=== PATIENT | female | born 2000 | race American Indian/Alaskan Native ===

== ENCOUNTER 2021-02-14 08:14 | Emergency (ER) | payer SELFPAY ==
[2021-02-14 08:35] VITALS: BP 114/77
[2021-02-14] MEDS ORDERED: KETOROLAC 30 MG/1 ML INJ IM ONE (08:44)
--- NOTE | 2021-02-14 08:45 | Emergency Department Report ---
ED General Adult HPI - General Chief complaint: Chest Pain Stated complaint: CHEST PAIN PUI?: No Time Seen by Provider: 02/14/21 08:43 Source: patient Mode of arrival: Ambulatory Limitations: No Limitations - History of Present Illness Initial comments: 20 yo comes to ER with cp. She states this is her usual chest pain. Sharp and dull. Moves from area to area over her anterior chest. She is from [place] and her MD there had sent her to a specialist- but then she moved. She can not tell me what kind of specialist. She is on home naproyn. Warm baths and cold packs relieves pain. Movement makes pain worse. no fall or trauma. no other medical history no fever no chills no sob pt is NOT obese she is on no meds other than naprosyn -: Gradual, month(s) Consistency: intermittent Improves with: other Worsens with: movement Associated Symptoms: denies other symptoms - Related Data Previous Rx's Medication Instructions Recorded Last Taken Type methylPREDNISolone [Medrol 4MG 4 mg PO FS #1 tab.ds.pk 02/14/21 Unknown Rx DOSEPAK (21 tabs)] Allergies Allergy/AdvReac Type Severity Reaction Status Date / Time No Known Allergies Allergy Verified 02/14/21 08:35 ED Review of Systems ROS: Stated complaint: CHEST PAIN Other details as noted in HPI Comment: All other systems reviewed and negative ED Past Medical Hx - Past Medical History Previous Medical History?: Yes Additional medical history: costrocondritis - Surgical History Past Surgical History?: No - Family History Family history: no significant - Social History Smoking Status: Never Smoker Substance Use Type: None - Medications Home Medications: Home Medications Medication Instructions Recorded Confirmed Last Taken Type methylPREDNISolone [Medrol 4MG 4 mg PO FS #1 tab.ds.pk 02/14/21 Unknown Rx DOSEPAK (21 tabs)] ED Physical Exam - General Limitations: No Limitations General appearance: alert, in no apparent distress - Head Head exam: Present: atraumatic, normocephalic - Eye Eye exam: Present: normal appearance - ENT ENT exam: Present: mucous membranes moist - Neck Neck exam: Present: normal inspection - Respiratory Respiratory exam: Present: normal lung sounds bilaterally. Absent: respiratory distress - Cardiovascular Cardiovascular Exam: Present: regular rate, normal rhythm. Absent: systolic murmur, diastolic murmur, rubs, gallop - GI/Abdominal GI/Abdominal exam: Present: soft, normal bowel sounds - Extremities Exam Extremities exam: Present: normal inspection - Back Exam Back exam: Present: normal inspection - Neurological Exam Neurological exam: Present: alert, oriented X3 - Psychiatric Psychiatric exam: Present: normal affect, normal mood - Skin Skin exam: Present: warm, dry, intact, normal color. Absent: rash ED Course Vital Signs 02/14/21 02/14/21 08:34 08:55 Temperature 98.2 F Pulse Rate 101 H Respiratory 16 16 Rate Blood Pressure 114/77 [Right] O2 Sat by Pulse 98 Oximetry ED Medical Decision Making - Medical Decision Making Vital Signs (72 hours) 02/14/21 02/14/21 08:34 08:55 Temperature 98.2 F Pulse Rate 101 H Respiratory 16 16 Rate Blood Pressure 114/77 [Right] O2 Sat by Pulse 98 Oximetry given toradol IM already on naprosyn; will dc with rx for dose pack dc home with dc plan of care including follow up, rx, diet and activity. Pt verbalizes understanding of plan of care - Differential Diagnosis a/c costrochondritis Critical care attestation.: If time is entered above; I have spent that time in minutes in the direct care of this critically ill patient, excluding procedure time. ED Disposition Clinical Impression: Costochondritis Disposition: 01 HOME / SELF CARE / HOMELESS Is pt being admited?: No Does the pt Need Aspirin: No Condition: Stable Instructions: Costochondritis, [id number], Costochondritis Additional Instructions: med as ordered today you can take you naprosyn both of these should be taken with food follow up as we discussed referral below Prescriptions: methylPREDNISolone [Medrol 4MG DOSEPAK (21 tabs)] 4 mg PO FS #1 tab.ds.pk Referrals: SATISH BAEZ MD [Staff Physician] - 3-5 Days Forms: Work/School Release Form(ED) Time of Disposition: 08:44
== END 2021-02-14 09:04 | disposition home or self-care (01) ==
LOC: ED 08:14
DX: M94.0 Chondrocostal junction syndrome [Tietze] (principal)
CPT/HCPCS: 96372; 99282; J1885

== ENCOUNTER 2021-08-29 16:00 | Emergency (ER) | payer SELFPAY ==
[2021-08-29 16:08] VITALS: BP 129/89
== END 2021-08-29 20:05 | disposition left against medical advice (07) ==
LOC: ED 16:00
DX: R07.89 Other chest pain (principal); Z53.21 Procedure and treatment not carried out due to patient leaving prior to being seen by health care provider
CPT/HCPCS: 93005